=== PATIENT | female | born 1965 | race Two or more races ===

== ENCOUNTER 2018-02-05 14:11 | Outpatient (CLI) | payer OTHER ==
[~2018-02-05 14:11] MED LIST: CIPRO500 MG PO; URIN D.S. TABLE1 TAB PO
== END 2018-02-05 14:21 | disposition home or self-care (01) ==
LOC: MAMO-SONO 14:11
DX: Z12.31 Encounter for screening mammogram for malignant neoplasm of breast (principal); D25.9 Leiomyoma of uterus, unspecified; N60.11 Diffuse cystic mastopathy of right breast; N60.12 Diffuse cystic mastopathy of left breast